=== PATIENT | male | born 1945 | race Caucasian/White ===

== ENCOUNTER → 2017-03-05 | Outpatient (CLI) | payer MEDICARE, OTHER ==
--- NOTE | ~2017-03-05 | CST ---
Cardiac Perfusion Imaging Demographics Patient Name ANTHONY Bai Gender Male Patient Number [id number] Race Visit Number [id number] Ethnicity [employer] ID Room Number Accession Number [id number] Height 62 inches Date of 1945 Weight 280 pounds Age 72 year(s) BSA 2.21 m Referring Physician Francis Horton MD BMI 51.21 kg/m [facility] Date of study 03/05/2017 Physician Radiology [place] Fernandez M.D. Supervising MD/ANDREEP Francis Horton MD [place] Technologist Judd Suggs, [facility] Ordering Physician Francis Horton MD Stress Marta Contreras hvac technician Stress ECG Reading Francis Horton MD Nurse [facility] Physician Linda Nolen The procedure was explained in detail to the patient. Risks, complications and alternative treatments were reviewed. Written consent was obtained. Medications Reviewed with Patient prior to Procedure. Procedure Procedure Type: Nuclear Stress Test:Pharmacological, Lexiscan Procedure Start time: 03/05/2017 07:15 Indications: Diabetes, Shortness of breath, Obesity, Hypertension, Tobacco use-prior and Chest pain. Risk Factors The patient risk factors include:obesity, former tobacco use, treated hypertension and insulin treated diabetes mellitus. Conclusions Summary Comparisons: Prior study from 06/14/2010. Perfusion Images: The overall quality of the study is good. Left ventricular cavity is noted to be normal on the stress and rest studies. There is no evidence of abnormal lung activity. The right ventricle is not visualized and cannot be assessed. Stress SPECT images demonstrate homogenous tracer distribution throughout the myocardium. Rest SPECT images demonstrate homogenous tracer distribution throughout the myocardium. Gated SPECT imaging reveals normal myocardial thickening and wall motion. The left ventricular ejection fraction was calculated to be 63%. Impression 1. Normal myocardial perfusion. 2. Normal left ventricular systolic function with an ejection fraction of 63 %. Stress Protocols Resting ECG No ECG changes suggestive of ischemia. Resting HR:68 bpm Resting BP:158/68 mmHg Stress Protocol:Pharmacologic Predicted HR: 150 bpm Test duration: 06:00 min Reason for termination:Infusion complete ECG Findings No ECG changes suggestive of ischemia. Complications Procedure complication: None. Stress Interpretation Appropriate hemodynamic response to Lexiscan. No significant ST-T wave changes with Lexiscan. ECG portion is negative for ischemia by diagnostic criteria. Imaging Results Summed scores - Summed stress score: 0 - Summed rest score: 0 - Summed difference score: 0 Stress ejection Ejection fraction:63 % EDV :119 ml ESV :44 ml Stroke volume :75 ml LV mass :149 gr Imaging Protocols Rest Stress Isotope:Tc99m Myoview IV Isotope: Tc99m Myoview IV Isotope dose:10.2 mCi Isotope dose:31.8 mCi Date:03/05/2017 06:28 Date:03/05/2017 07:38 Technique: SPECT Technique: Gated Supine SPECT Supine Scan Time:30 minutes post injection Scan Time:15-30 minutes post injection Procedure Medications - Regadenoson (Lexiscan) 0.4 mg IV over 10-15 sec. I.V. 0.4 mg. Medications administered per verbal order and read back to physician prior to administration. Medical History Admission Data Admission date: 03/05/2017 Admission Time: 05:58 Hospital Status: Outpatient. Signatures
== END | disposition home or self-care (01) ==
LOC: CARD 05:58
DX: R07.9 Chest pain, unspecified (principal); R06.02 Shortness of breath; E11.9 Type 2 diabetes mellitus without complications; I10 Essential (primary) hypertension; Z98.890 Other specified postprocedural states; E66.9 Obesity, unspecified